=== PATIENT | male | born 2000 | race American Indian/Alaskan Native ===

== ENCOUNTER 2020-12-19 05:15 | Emergency (ER) | payer OTHER ==
[2020-12-19 05:37] VITALS: BP 130/81
== END 2020-12-19 06:20 | disposition left against medical advice (07) ==
LOC: ED 05:15
DX: J02.9 Acute pharyngitis, unspecified (principal); R42 Dizziness and giddiness; Z53.21 Procedure and treatment not carried out due to patient leaving prior to being seen by health care provider